=== PATIENT | female | born 1970 | race Hispanic/Latino ===

== ENCOUNTER 2024-03-23 07:56 | Day surgery (SDC) | payer BC, OTHER ==
[2024-03-23] VITALS (10 sets, daily range): BP systolic 108–130; BP diastolic 64–87; PULSE 60–73; RESP 13–19; TEMP 97.3–98.4
[~2024-03-23] VITALS: Ht 167.6 cm; Wt 54.4 kg
[2024-03-23] MEDS ORDERED: SIME125C PO (08:25)
[2024-03-23] MEDS ORDERED: MELO-106 PO (08:25)
[2024-03-23] MEDS ORDERED: PROM25TA7 PO (08:25)
[2024-03-23] MEDS ORDERED: MELA5CAP PO (08:25)
[2024-03-23] MEDS ORDERED: ROSU10TA72 PO (08:25)
[2024-03-23] MEDS ORDERED: MULT-1192 PO (08:25)
[2024-03-23] MEDS: 0.9%NACL 1000ML 1,000 ML IV ONE (08:31)
[2024-03-23] MEDS ORDERED: proPOFol 10 MG/ML 20ML VIAL IV ONE (10:10)
[2024-03-23] MEDS ORDERED: LIDOCAINE PF 100MG/5ML (2%) SYRINGE 5ML ONE (10:10)
--- NOTE | 2024-03-23 11:29 | NUR ---
Full and complete discharge instructions provided to Patient and Family. All questions answered. VU to post Procedure instructions. All questions answered. PIV removed with catheter tip intact. W/C to POV with Family.
== END 2024-03-23 11:30 | disposition home or self-care (01) ==
LOC: SUH 07:56 → DAH 07:56 → SUH 11:30 → DAH 11:30
PROVIDERS: ATTEND Surgery
DX: K30 Functional dyspepsia (principal); K29.50 Unspecified chronic gastritis without bleeding; K82.8 Other specified diseases of gallbladder; K21.9 Gastro-esophageal reflux disease without esophagitis; K31.84 Gastroparesis; K76.0 Fatty (change of) liver, not elsewhere classified; K22.89 Other specified disease of esophagus; K91.1 Postgastric surgery syndromes; F41.9 Anxiety disorder, unspecified; F32.A Depression, unspecified; I10 Essential (primary) hypertension; G89.29 Other chronic pain; E78.5 Hyperlipidemia, unspecified; Z86.0100 Personal history of colon polyps, unspecified; Z90.710 Acquired absence of both cervix and uterus; Z98.1 Arthrodesis status; Z90.3 Acquired absence of stomach [part of]; Z98.84 Bariatric surgery status; Z90.49 Acquired absence of other specified parts of digestive tract; Z79.899 Other long term (current) drug therapy
CPT/HCPCS: 43239; J7030; J2003; J2704; A4620; A4215 ×2; A4223; A4222; A4221; A4663; A4606; J3490